=== PATIENT | male | born 1960 | race Caucasian/White ===

== ENCOUNTER 2017-09-25 09:09 | Inpatient (IN) | payer OTHER ==
[~2017-09-25] VITALS: Ht 170.2 cm; Wt 88.0 kg
[2017-09-25 10:05] LABS: CALCIUM 8.5 mg/dL (8.5-10.1); CARBON DIOXIDE 23.1 mmol/L (21-32); CHLORIDE SERUM 106 mmol/L (98-107); CREATININE SERUM 0.7 mg/dL (0.7-1.3); GFR1 > 60 mL/min; GLUCOSE SERUM 193 mg/dL (74-106); POTASSIUM SERUM 3.9 mmol/L (3.5-5.1); SODIUM SERUM 139 mmol/L (136-145)
[2017-09-25 10:09] LABS: ALBUMIN 3.3 g/dL (3.4-5.0); ALKALINE PHOSPHATASE 139 U/L (46-116); ALT/SGPT 52 U/L (16-63); AST/SGOT 38 U/L (15-37); BILIRUBIN TOTAL 2.5 mg/dL (0.20-1.00); CHOLESTEROL 135 mg/dL (<200); TOTAL PROTEIN, SERUM 7.2 g/dL (6.4-8.2)
[2017-09-25 10:17] LABS: microscopic required? NO
[2017-09-25 10:24] LABS: RED CELL DISTRIBUTION WIDTH 13.8 % (11.5-14.5)
[2017-09-25 10:25] LABS: PLATELET COUNT 76 x10^3mcL (130-400)
[2017-09-25 10:29] LABS: urine erythrocyte NEGATIVE (NEGATIVE)
[2017-09-25 11:07] LABS: BAND NEUTROPHIL 2 % (0-10); BASOPHIL 0 % (0-2); MONOCYTE 3 % (0-7); SEGMENTED NEUTROPHILS 77 % (37-75)
[2017-09-25 11:08] LABS: PLATELET MORPHOLOGY PLATELETS DECREASED
[2017-09-25] MEDS ORDERED: [UNRECOGNIZED DRUG - OTHER] TOP (11:11)
[2017-09-25] MEDS ORDERED: BETAMETHASONE TOP (11:11)
[2017-09-25] MEDS ORDERED: PROPRANOLOL HCL20 MG PO (11:11)
[2017-09-25] MEDS ORDERED: EPCLUSA 400 MG1 EACH PO (11:11)
[2017-09-25] MEDS ORDERED: CAPSAICIN0.075% (11:12)
[2017-09-25] MEDS ORDERED: LASIX80 MG PO (11:12)
[2017-09-25] MEDS ORDERED: LACTULOSE10 GM/152 PO (11:12)
[2017-09-25] MEDS ORDERED: METFORMIN850 M1 PO (11:13)
[2017-09-25] MEDS ORDERED: LANTUS SOLOS100 U/M1 SQ (11:13)
[2017-09-25] MEDS ORDERED: ASSORTED FRUIT G4 GM PO (11:13)
[2017-09-25] MEDS ORDERED: MID5 PO (11:14)
[2017-09-25 11:37] LABS: AMPHETAMINE QUAL UR NONE DETECTED (NEG <=1000)
[2017-09-25 12:26] VITALS: BP 126/57
[2017-09-25 12:31] VITALS: BP 126/57
[2017-09-25 17:44] VITALS: BP 128/66
[2017-09-25 20:26] VITALS: BP 136/68
[2017-09-26 05:48] VITALS: BP 148/79
[2017-09-26 06:47] LABS: CALCIUM 8.3 mg/dL (8.5-10.1); CARBON DIOXIDE 25.3 mmol/L (21-32); CHLORIDE SERUM 106 mmol/L (98-107); CREATININE SERUM 0.7 mg/dL (0.7-1.3); GFR1 > 60 mL/min; GLUCOSE SERUM 211 mg/dL (74-106); POTASSIUM SERUM 3.5 mmol/L (3.5-5.1); SODIUM SERUM 139 mmol/L (136-145)
[2017-09-26 07:41] LABS: RED CELL DISTRIBUTION WIDTH 13.7 % (11.5-14.5)
[2017-09-26 07:43] LABS: BASOPHIL % 0.6 % (0-2)
[2017-09-26 07:44] LABS: PLATELET COUNT 64 x10^3mcL (130-400)
[2017-09-26 10:48] VITALS: BP 133/71
[2017-09-26 16:00] VITALS: BP 140/76
== END 2017-09-26 18:21 | disposition other institution (70) | DRG 441 ==
LOC: ED 09:09 → DU 10:51
PROVIDERS: Emergency Medicine; Specialist; ADMIT Internal Medicine
DX: K72.90 Hepatic failure, unspecified without coma (principal); G93.41 Metabolic encephalopathy; D61.818 Other pancytopenia; K74.60 Unspecified cirrhosis of liver; E11.9 Type 2 diabetes mellitus without complications; B19.20 Unspecified viral hepatitis C without hepatic coma; I10 Essential (primary) hypertension
CPT/HCPCS: 82962; 83880; G0480; J1815; J7030; Q0092